=== PATIENT | male | born 1965 | race Caucasian/White ===

== ENCOUNTER 2019-09-20 12:47 | Emergency (ER) | payer OTHER ==
--- NOTE | 2019-09-20 12:52 | ED Physician Documentation ---
General Adult - HISTORIAN Historian: patient - HPI Stated Complaint: "lump" in groin x 3 weeks Chief Complaint: General Adult Onset: other (3 weeks ) Timing: still present Severity: mild Further Comments: yes (He has an area of swelling in left groin x 3 weeks no injury reported/ No urinary discomfort. No discharge. No warmth. He has had "3 hernia surgries" - after he was moved to / he states he has had scrotoal pain and swelling on and off for the three weeks.) - ROS CONST: no problems GI/: denies: abdominal pain, problems urinating, vomiting, nausea MS/SKIN/LYMPH: none - PAST HX Past History: other (depression - history of hernia ) Immunizations: UTD Allergies/Adverse Reactions: Allergies Allergy/AdvReac Type Severity Reaction Status Date / Time pseudoephedrine HCl AdvReac Tremors Verified 09/20/19 13:13 [From Actifed] triprolidine HCl AdvReac Tremors Verified 09/20/19 13:13 [From Actifed] Home Medications: Ambulatory Orders Medication Instructions Recorded FLUoxetine HCL [Prozac] 07/08/14 RX: Hydrochlorothiazide 07/08/14 [Hydrodiuril] Zolpidem Tartrate [Ambien] 07/08/14 - SOCIAL HX Smoking History: cigarettes Alcohol Use: none Drug Use: none - FAMILY HX Family History: No - VITAL SIGNS Vital Signs: Vital Signs Temp Pulse Resp BP Pulse Ox 105/84 07/08/14 21:41 - REVIEWED ASSESSMENTS Nursing Assessment Reviewed: Yes Vitals Reviewed: Yes Progress - Progress Progress: 1530: discussed with rad no results. resting quietly in room DG 1600: radiologist called with verbal report of no torsion DG General Adult Physical Exam - PHYSICAL EXAM GENERAL APPEARANCE: no distress EENT: eye inspection normal, no signs of dehydration NECK: normal inspection RESPIRATORY: no resp distress, chest non-tender, breath sounds normal CVS: reg rate & rhythm, heart sounds normal, equal pulses ABDOMEN: soft, normal bowel sounds, no distension, non-tender, other (left groin 3 cm raised skin color area with pain to palpaiton. Scotum without redness or swelling. testies in place no pain to touch ) SKIN: warm/dry, normal color EXTREMITIES: non-tender, normal range of motion NEURO: oriented X3 Discharge Clincal Impression: Epididymitis Referrals: Lead,Adrian Cheo, MD [Primary Care Provider] - 2 Days Comments: 1. Doxycycline 100 mg take 1 by mouth twice daily x 10 days 2. Follow up with PCP in 2 days 3. Return to ER for any increased concerns Condition: Stable Disposition: 01 HOME, SELF-CARE Decision to Admit: NO Date of Decison to Admit: 09/20/19 Decision Time: 16:04
--- NOTE | 2019-09-20 14:49 | Diagnostic Imaging Report ---
PATIENT MR#: [id number] PATIENT PATIENT NAME: KINGS GRIFFITH DATE OF : 1965 REFERRING PHYSICIAN: Annamarie Arriaza EXAM DATE: 09/20/2019 ACCESSION NUMBER: [id number] EXAM DESCRIPTION: US SCROTUM CONTENTS Indication: Left scrotal pain and swelling. Technique: Multiple grayscale and color sonographic images of the testicles were obtained. Comparison: None available. Findings: The bilateral testicles demonstrate vascular flow present. The right testicle is normal in size and echogenicity measuring 4.3 x 2.8 x 2.9 cm. The left testicle is normal in size and echogenicity hema uring 4.7 x 2.7 x 2.3 cm. The right epididymis is normal in size and appearance. The left epididymal head is mildly e nlarged measuring 1.9 cm with multiple small cystic foci. There is a moderate-sized left hydrocele which contains some echogenic debris. There is no right-sided hydrocele. Impression: 1. Moderate sized left hydrocele with some echogenic debris as well as mild enlargement of the left epididymal head. This could be due to an infectious or inflammatory process such as epididymitis. Clinical correlatio n suggested. 2. Vascular flow present in the bilateral testicles. Read by: Dr. Adalid Villareal Transcribed by: Adalid Villareal Transcribed Date: 09/20/2019 4:20:39 PM Electronically signed by: Dr. Adalid Villareal Date signed: 09/20/2019 4:21:46 PM
--- NOTE | 2019-09-20 14:54 | Diagnostic Imaging Report ---
PATIENT MR#: [id number] PATIENT PATIENT NAME: KINGS GRIFFITH DATE OF : 1965 REFERRING PHYSICIAN: Annamarie Arriaza EXAM DATE: 09/20/2019 ACCESSION NUMBER: [id number] EXAM DESCRIPTION: US TRANSABDOMINAL PELVIS Indication: Focal swelling in the left groin which comes and goes, history of multiple hernia repair surgeries 10 years ago. Technique: Multiple grayscale and color sonographic imaging was performed of the inguinal soft tissue s. Comparison: No priors available. Findings: Imaging of the left inguinal soft tissues demonstrates no mass or fluid collection. Compar maria esther imaging of the right inguinal soft tissues demonstrates a symmetric appearance. The inguinal vessels bilaterally ar e patent and unremarkable. Impression: No mass or fluid collection seen in the left inguinal soft tissues. If clinically indica bill, further evaluation with CT may be helpful. Read by: Dr. Adalid Villareal Transcribed by: Adalid Villareal Transcribed Date: 09/20/2019 2:51:10 PM Electronically signed by: Dr. Adalid Villareal Date signed: 09/20/2019 2:53:49 PM
[2019-09-20 15:44] LABS: APPEARANCE,URINE CLEAR (CLEAR); COLOR,URINE YELLOW (YELLOW)
[2019-09-20 15:45] LABS: OCCULT BLOOD,URINE 2+ (NEGATIVE); UROBILINOGEN URINE 0.2 Eu (0.2-1.0)
[2019-09-20] MEDS ORDERED: LIDOCAINE HCL 1% MDV 200MG/20ML VIAL ONE (16:00)
[2019-09-20] MEDS ORDERED: cefTRIAXone SODIUM 250 MG INJ IM ONE (16:00)
[2019-09-20 16:14] VITALS: BP 142/78
== END 2019-09-20 16:14 | disposition home or self-care (01) ==
LOC: ED 12:47
DX: N45.1 Epididymitis (principal)
CPT/HCPCS: 76856; 76870; 81002; 87491; 87591; 96372; 99283; 99284; J0696